=== PATIENT | male | born 1955 | race Hispanic/Latino ===

== ENCOUNTER → 2017-10-06 | Outpatient (CLI) | payer OTHER ==
[~2017-10-06] MED LIST: ALPR0.255 PO; ASPI-1197 PO; ATOR40TA71 PO; BUPR150T8 PO; BUSP15TA3 PO; CETI10TA86 PO; CLOP75TA32 PO; ERGO500014 PO; FLUT15.88 EN; FURO20TA6 PO; METF-444 PO; METO-408 PO; OMEGA KRILL OIL PO; PANT40TA25 PO; PRAZ1CAP5 PO; TRAZ-187 PO; TYL3 PO; VIT B12 PO
== END | disposition home or self-care (01) ==
LOC: SHCH 11:47
PROVIDERS: ATTEND Internal Medicine Cardiovascular Disease
DX: I73.9 Peripheral vascular disease, unspecified (principal); E11.9 Type 2 diabetes mellitus without complications; F41.9 Anxiety disorder, unspecified; F32.9 Major depressive disorder, single episode, unspecified; Z72.89 Other problems related to lifestyle; I10 Essential (primary) hypertension; E78.5 Hyperlipidemia, unspecified; I25.10 Atherosclerotic heart disease of native coronary artery without angina pectoris
CPT/HCPCS: 93925

== ENCOUNTER 2017-11-15 07:23 | Observation (INO) | payer OTHER ==
[2017-11-12 09:58] VITALS: BP 118/81
[2017-11-12 09:59] LABS: BASOPHILS % (AUTO) 1.2 % (0.0-5.0); EOSINOPHILS % (AUTO) 1.6 % (0.0-8.0); HEMATOCRIT 43.3 % (42-54); LYMPHOCYTES % (AUTO) 29.3 % (21.0-51.0); MEAN CORPUSCULAR HEMOGLOBIN 30.3 pg (27.0-33.0); MEAN CORPUSCULAR HGB CONC 35.6 g/dL (32.0-36.0); MEAN CORPUSCULAR VOLUME 85.2 fL (79-99); MONOCYTES % (AUTO) 9.5 % (3.0-13.0); NEUTROPHILS % (AUTO) 58.4 % (40.0-77.0); NUCLEATED RED BLOOD CELLS 0.1 % (0.0-0.19); PLATELET COUNT (AUTO) 168 K/uL (130-400); RED BLOOD CELL COUNT(AUTO) 5.08 MIL/uL (4.50-6.20); RED CELL DISTRIBUTION WIDTH 13.9 % (11.0-15.5); WHITE BLOOD COUNT (AUTO) 5.5 K/uL (4.8-10.8)
[2017-11-12 10:06] LABS: POTASSIUM 3.9 mmol/L (3.5-5.1)
[2017-11-12 10:10] LABS: INR 1.01 (0.85-1.15); PARTIAL THROMBOPLASTIN TIME 27.8 SEC (26.3-35.5); PROTHROMBIN TIME 10.6 SEC (9.6-11.6)
[2017-11-12 10:38] LABS: APPEARANCE,URINE Clear (CLEAR); BILIRUBIN,URINE Negative (NEGATIVE); COLOR,URINE Yellow (YELLOW); GLUCOSE, URINE (UA) Negative (NEGATIVE); KETONES,URINE Negative (NEGATIVE); LEUKOCYTE ESTERASE ,URINE Negative (NEGATIVE); NITRATE,URINE Negative (NEGATIVE); OCCULT BLOOD,URINE Negative (NEGATIVE); PROTEIN,URINE Negative (NEGATIVE); UROBILINOGEN,URINE 0.2 mg/dL (0.2-1.0)
[~2017-11-15] VITALS: Ht 165.1 cm; Wt 74.8 kg
[2017-11-15] VITALS (11 sets, daily range): BP systolic 97–143; BP diastolic 59–83
[~2017-11-15 07:23] MED LIST changes: +CARV25TA PO; -CLOP75TA32 PO; -ERGO500014 PO; -FLUT15.88 EN; +FLUTICASONE PROP NASAL; -FURO20TA6 PO; +GABA-318 PO; -METF-444 PO; +METF-446 PO; -METO-408 PO; +NAPR-1023 PO; -OMEGA KRILL OIL PO; -PANT40TA25 PO; +RANI150T7 PO; +SILD100T PO; -TYL3 PO; -VIT B12 PO
[2017-11-15] MEDS ORDERED: SODIUM CHLORIDE 0.9% 1000ML 1,000 ML IV ONE (07:27)
[2017-11-15] MEDS ORDERED: HEPARIN SODIUM 1000UNIT/ML 10ML VIAL ONE (09:21)
[2017-11-15] MEDS ORDERED: IOHEXOL-350 50ML VIAL IV ONE (09:21)
[2017-11-15] MEDS ORDERED: LIDOCAINE HCL-MPF 2% 5ML VIAL ONE (09:21)
[2017-11-15] MEDS ORDERED: NITROGLYCERIN 5 MG/ML 10 ML VIAL IV ONE (09:21)
[2017-11-15] MEDS ORDERED: IOHEXOL 350 MG/ML 100ML INFUS..BTL IV ONE ×2 (09:21→10:44)
[2017-11-15] MEDS ORDERED: SODIUM BICARB 50MEQ 50ML VIAL ONE (09:21)
[2017-11-15] MEDS ORDERED: MIDAZOLAM HCL 1 MG/ML 2ML VIAL ONE ×2 (10:29→10:50)
[2017-11-15] MEDS ORDERED: MEPERIDINE-PF 25 MG/ML SYG ONE ×2 (10:29→10:50)
[2017-11-15] MEDS ORDERED: ASPIRIN 325MG EC TAB 325 MG TABLET.DR PO ONE (12:01)
[2017-11-15] MEDS ORDERED: CLOPIDOGREL BISULFATE 300 MG TAB ONE (12:01)
[2017-11-15] MEDS: SODIUM CHLORIDE 0.9% 1000ML 1,000 ML IV SCH ×2 (12:09→20:47)
[2017-11-15] MEDS ORDERED: ONDANSETRON HCL 4 MG/2 ML VIAL IVP PRN (12:15)
[2017-11-15] MEDS ORDERED: SILDENAFIL CITRATE PO SCH (12:15)
[2017-11-15] MEDS ORDERED: ACETAMINOPHEN-CODEINE 300/30MG TAB PO PRN ×2 (12:15)
[2017-11-15] MEDS ORDERED: DEXTROSE 50%-WATER 50 ML DISP.SYRIN IV PRN (12:15)
[2017-11-15] MEDS ORDERED: TRAZODONE HCL 100 MG TABLET PO SCH (12:15)
[2017-11-15] MEDS ORDERED: ALPRAZOLAM 0.5 MG TABLET PO SCH (12:15)
[2017-11-15] MEDS: INSULIN HUMULIN R 100 UNIT/ML 3ML SQ SCH ×2 (16:30→21:00)
[2017-11-15] MEDS ORDERED: ALPRAZOLAM 0.5 MG TABLET PO PRN (20:00)
[2017-11-15] MEDS: BUSPIRONE HCL 5 MG TABLET PO SCH (20:28)
[2017-11-15] MEDS: BUPROPION HCL 150 MG TABLET.SA PO SCH (20:29)
[2017-11-15] MEDS: CARVEDILOL 3.125 MG TABLET PO SCH (20:29)
[2017-11-15] MEDS: RANITIDINE HCL 15 MG/1 ML PO SCH (20:46)
[2017-11-15] MEDS: NAPROXEN 500 MG TABLET PO SCH (20:47)
[2017-11-15] MEDS ORDERED: PRAZOSIN 1 MG PO SCH (21:00)
[2017-11-15] MEDS ORDERED: ATORVASTATIN CALCIUM 20 MG TABLET PO SCH (21:00)
[2017-11-16 04:15] LABS: HEMATOCRIT 38.6 % (42-54); MEAN CORPUSCULAR HEMOGLOBIN 30.7 pg (27.0-33.0); MEAN CORPUSCULAR HGB CONC 35.8 g/dL (32.0-36.0); MEAN CORPUSCULAR VOLUME 85.6 fL (79-99); PLATELET COUNT (AUTO) 145 K/uL (130-400); RED BLOOD CELL COUNT(AUTO) 4.51 MIL/uL (4.50-6.20); RED CELL DISTRIBUTION WIDTH 13.7 % (11.0-15.5); WHITE BLOOD COUNT (AUTO) 5.7 K/uL (4.8-10.8)
[2017-11-16 04:32] LABS: POTASSIUM 4.2 mmol/L (3.5-5.1)
[2017-11-16 04:37] VITALS: BP 120/74
[2017-11-16] MEDS: INSULIN HUMULIN R 100 UNIT/ML 3ML SQ SCH (06:42)
[2017-11-16 08:10] VITALS: BP 122/79
[2017-11-16] MEDS ORDERED: GABAPENTIN 300 MG CAPSULE PO SCH (09:00)
[2017-11-16] MEDS ORDERED: CLOPIDOGREL BISULFATE 75 MG TAB PO SCH (09:00)
[2017-11-16] MEDS ORDERED: FLUTICASONE PROPIONATE 50MCG/SPRAY 16 GM BOTTLE EN SCH (09:00)
[2017-11-16] MEDS ORDERED: ASPIRIN 81MG TAB.CHEW PO SCH (09:00)
[2017-11-16] MEDS ORDERED: CETIRIZINE HCL 5 MG TABLET PO SCH (09:00)
[2017-11-16] MEDS: BUSPIRONE HCL 5 MG TABLET PO SCH (10:13)
[2017-11-16] MEDS: RANITIDINE HCL 15 MG/1 ML PO SCH (10:13)
[2017-11-16] MEDS: NAPROXEN 500 MG TABLET PO SCH (10:13)
[2017-11-16] MEDS: BUPROPION HCL 150 MG TABLET.SA PO SCH (10:14)
[2017-11-16] MEDS: CARVEDILOL 3.125 MG TABLET PO SCH (10:14)
[2017-11-16 12:23] VITALS: BP 137/83
== END 2017-11-16 13:35 | disposition home or self-care (01) ==
LOC: DAH 07:23 → SUH 07:23 → 2DH 07:24
PROVIDERS: ADMIT Internal Medicine; ATTEND Internal Medicine
DX: I25.119 Atherosclerotic heart disease of native coronary artery with unspecified angina pectoris (principal); E11.9 Type 2 diabetes mellitus without complications; I10 Essential (primary) hypertension; E78.2 Mixed hyperlipidemia; F41.9 Anxiety disorder, unspecified; Z95.1 Presence of aortocoronary bypass graft; Z82.49 Family history of ischemic heart disease and other diseases of the circulatory system; Z83.3 Family history of diabetes mellitus; Z79.01 Long term (current) use of anticoagulants; Z79.82 Long term (current) use of aspirin
CPT/HCPCS: 36415 ×3; 71045; 80048 ×2; 80061; 81003; 82948 ×3; 85025; 85027; 85347 ×2; 85610; 85730; 92920; 93005; 93459; A4606; C1725 ×2; C1760; C1769 ×5; C1874; C1887 ×2; C1894 ×2; C9600; G0378 ×30; J1644 ×2; J2175 ×2; J2250 ×2; J3490 ×3; J7030; Q9965 ×2; Q9967 ×3; 92921; 99156; 99157

== ENCOUNTER → 2018-08-23 | Outpatient (CLI) | payer OTHER ==
[~2018-08-23] MED LIST changes: -GABA-318 PO; +GABA600T10 PO
== END | disposition home or self-care (01) ==
LOC: RAH 11:04
PROVIDERS: ATTEND Internal Medicine Cardiovascular Disease
DX: M47.816 Spondylosis without myelopathy or radiculopathy, lumbar region (principal); M47.817 Spondylosis without myelopathy or radiculopathy, lumbosacral region; G95.81 Conus medullaris syndrome
CPT/HCPCS: 72148

== ENCOUNTER 2018-10-26 07:08 | Observation (INO) | payer OTHER ==
[2018-10-21 15:30] VITALS: BP 109/72
[2018-10-21 15:35] LABS: BASOPHILS % (AUTO) 1.3 % (0.0-5.0); EOSINOPHILS % (AUTO) 1.6 % (0.0-8.0); HEMATOCRIT 41.2 % (42-54); LYMPHOCYTES % (AUTO) 32.5 % (21.0-51.0); MEAN CORPUSCULAR HEMOGLOBIN 30.4 pg (27.0-33.0); MEAN CORPUSCULAR HGB CONC 35.6 g/dL (32.0-36.0); MEAN CORPUSCULAR VOLUME 85.5 fL (79-99); MONOCYTES % (AUTO) 10.5 % (3.0-13.0); NEUTROPHILS % (AUTO) 54.1 % (40.0-77.0); NUCLEATED RED BLOOD CELLS 0.1 % (0.0-0.19); PLATELET COUNT (AUTO) 187 K/uL (130-400); RED BLOOD CELL COUNT(AUTO) 4.82 MIL/uL (4.50-6.20)
[2018-10-21 15:37] LABS: APPEARANCE,URINE Clear (CLEAR); BILIRUBIN,URINE Negative (NEGATIVE); COLOR,URINE Yellow (YELLOW); GLUCOSE, URINE (UA) Negative (NEGATIVE); KETONES,URINE Negative (NEGATIVE); LEUKOCYTE ESTERASE ,URINE Negative (NEGATIVE); NITRATE,URINE Negative (NEGATIVE); OCCULT BLOOD,URINE Negative (NEGATIVE); PH,URINE 5.5 (5.0-8.0); PROTEIN,URINE Negative (NEGATIVE)
[2018-10-21 15:47] LABS: CREATININE 0.9 mg/dL (0.5-1.5); POTASSIUM 3.7 mmol/L (3.5-5.1)
[2018-10-21 15:50] LABS: INR 1.01 (0.85-1.15); PARTIAL THROMBOPLASTIN TIME 25.9 SEC (26.3-35.5); PROTHROMBIN TIME 10.6 SEC (9.6-11.6)
[2018-10-26] VITALS (17 sets, daily range): BP systolic 106–127; BP diastolic 59–81
[~2018-10-26] VITALS: Ht 165.1 cm; Wt 72.9 kg
[~2018-10-26 07:08] MED LIST changes: -ALPR0.255 PO; -CARV25TA PO; +CARV6.25 PO; +CETI10TA57 PO; -CETI10TA86 PO; +CLOP75TA32 PO; +CYANOCOBALAMIN PO; +FLUT15.845 NS; -FLUTICASONE PROP NASAL; +MONT10TA24 PO; -NAPR-1023 PO
[2018-10-26] MEDS ORDERED: SODIUM CHLORIDE 0.9% 1000ML 1,000 ML IV SCH ×2 (08:00→13:45)
[2018-10-26] MEDS ORDERED: IOHEXOL-350 50ML VIAL IV ONE (12:19)
[2018-10-26] MEDS ORDERED: IOHEXOL 350 MG/ML 100ML INFUS..BTL IV ONE ×2 (12:19→13:15)
[2018-10-26] MEDS ORDERED: NITROGLYCERIN 5 MG/ML 10 ML VIAL IV ONE (12:19)
[2018-10-26] MEDS ORDERED: HEPARIN SODIUM 1000UNIT/ML 10ML VIAL ONE (12:20)
[2018-10-26] MEDS ORDERED: LIDOCAINE HCL 2% 20ML ONE (12:20)
[2018-10-26] MEDS ORDERED: SODIUM BICARB 50MEQ 50ML VIAL ONE (12:21)
[2018-10-26] MEDS ORDERED: MIDAZOLAM HCL 1 MG/ML 2ML VIAL ONE ×2 (12:28→13:12)
[2018-10-26] MEDS ORDERED: MEPERIDINE-PF 25 MG/ML SYG ONE ×2 (12:28→13:12)
[2018-10-26] MEDS ORDERED: NITROGLYCERIN 50 MG/D5% WATER 1 BOT IV PRN (13:45)
[2018-10-26] MEDS ORDERED: SILDENAFIL CITRATE PO SCH (13:45)
[2018-10-26] MEDS ORDERED: ONDANSETRON HCL 4 MG/2 ML VIAL IVP PRN (13:45)
[2018-10-26] MEDS ORDERED: TRAZODONE HCL 100 MG TABLET PO PRN (13:45)
--- NOTE | 2018-10-26 15:00 | NUR ---
REPORT GIVEN TO AHSAN HUSSEIN RN PT. IS STABLE DRESSING IS CLEAN AND DRY. NO HEMATOMA NO BLEEDING AND PAIN
--- NOTE | 2018-10-26 15:09 | NUR ---
DR RODRIGUEZ PAGED WAITING ON RESPONSE
--- NOTE | 2018-10-26 15:14 | NUR ---
PLEASE CALL DR. RODRIGUEZ WHEN PT IS TSF TO [facility]. [facility] [phone]
--- NOTE | 2018-10-26 15:30 | NUR ---
RECEIVED REPORT FROM SHARON FINCH RN AT [id number], PT STABLE NO CONCERNS
--- NOTE | 2018-10-26 20:35 | NUR ---
RECEIVED TO ROOM,ORIENTATED TO CALL [facility] AND BED. BEDREST MAINTAINED AT THIS TIME, PATIENT VERBALIZED UNDERSTANDING. DRESSING TO RIGHT GROIN INTACT. AREA MARKED OF BLEEDING. RT GROIN APPEARS SOFT TO PALPATION. CALL [facility] WITHIN REACH..
[2018-10-26] MEDS ORDERED: ATORVASTATIN CALCIUM 20 MG TABLET PO SCH (21:00)
[2018-10-26] MEDS ORDERED: PRAZOSIN HCL 1 MG PO PRN (21:00)
[2018-10-26] MEDS ORDERED: MONTELUKAST SODIUM 10 MG TAB PO SCH (21:00)
[2018-10-26] MEDS: CARVEDILOL 3.125 MG TABLET PO SCH (21:16)
[2018-10-26] MEDS: RANITIDINE HCL 15 MG/1 ML PO SCH (21:17)
[2018-10-26] MEDS: BUPROPION HCL 150 MG TABLET.SA PO SCH (21:17)
--- NOTE | 2018-10-26 21:30 | NUR ---
gave report to the Mae Barrientos RN , no concerns voiced, advised pt and family of transfer to room no concerns voiced
--- NOTE | 2018-10-26 21:50 | NUR ---
HOSPITALIST NOTIFIED OF PATIENTS ARRIVAL TO [facility]
--- NOTE | 2018-10-26 22:45 | NUR ---
NO FURTHER BLEEDING NOTED TO RIGHT GROIN. SITE CONTINUE TO APPEAR SOFT TO PALPATION. PATIENT DENIES ANY COMPLAINTS OF PAIN OR DISCOMFORT.
[2018-10-26] MEDS ORDERED: ACETAMINOPHEN 325 MG TAB PO PRN (23:15)
[2018-10-26] MEDS ORDERED: NITROGLYCERIN 1GM/1 INCH PACKET TD PRN (23:15)
--- NOTE | 2018-10-27 00:45 | NUR ---
NO FURTHER BLEEDING NOTED OF RIGHT GROIN. SITE CONTINUES TO APPEAR SOFT TO PALPATION. PATIENT DENIES ANY COMPLAINTS OF PAIN OR DISCOMFORT AT THIS TIME. CALL [facility] WITHIN REACH.
[2018-10-27 03:45] VITALS: BP 119/75
[2018-10-27 03:59] LABS: HEMATOCRIT 39.3 % (42-54); MEAN CORPUSCULAR HEMOGLOBIN 30.4 pg (27.0-33.0); MEAN CORPUSCULAR HGB CONC 35.5 g/dL (32.0-36.0); MEAN CORPUSCULAR VOLUME 85.7 fL (79-99); NUCLEATED RED BLOOD CELLS 0.1 % (0.0-0.19); PLATELET COUNT (AUTO) 164 K/uL (130-400); RED BLOOD CELL COUNT(AUTO) 4.58 MIL/uL (4.50-6.20); RED CELL DISTRIBUTION WIDTH 14.2 % (11.0-15.5); WHITE BLOOD COUNT (AUTO) 6.4 K/uL (4.8-10.8)
--- NOTE | 2018-10-27 04:00 | NUR ---
RT GROIN DRESSING REMAINS INTACT. NO FURTHER BLEEDING NOTED. SITE APPEARS SOFT TO PALPATION. DENIES ANY COMPLAINTS OF PAIN OR DISCOMFORT AT PRESENT.
[2018-10-27 04:10] LABS: POTASSIUM 3.5 mmol/L (3.5-5.1)
[2018-10-27 07:18] VITALS: BP 121/77
[2018-10-27] MEDS ORDERED: METFORMIN HCL 500 MG TABLET PO SCH (08:00)
[2018-10-27] MEDS: RANITIDINE HCL 15 MG/1 ML PO SCH (08:04)
[2018-10-27] MEDS: BUPROPION HCL 150 MG TABLET.SA PO SCH (08:05)
[2018-10-27] MEDS: CARVEDILOL 3.125 MG TABLET PO SCH (08:05)
[2018-10-27] MEDS ORDERED: CETIRIZINE HCL 5 MG TABLET PO SCH (09:00)
[2018-10-27] MEDS ORDERED: CYANOCOBALAMIN (VITAMIN B-12) 1,000 MCG TABLET PO SCH (09:00)
[2018-10-27] MEDS ORDERED: BUSPIRONE HCL 5 MG TABLET PO SCH (09:00)
[2018-10-27] MEDS ORDERED: GABAPENTIN 300 MG CAPSULE PO SCH (09:00)
[2018-10-27] MEDS ORDERED: ASPIRIN 81MG TAB.CHEW PO SCH (09:00)
[2018-10-27] MEDS ORDERED: FLUTICASONE PROPIONATE 50MCG/SPRAY 16 GM BOTTLE EN SCH (09:00)
[2018-10-27] MEDS ORDERED: CLOPIDOGREL BISULFATE 75 MG TAB PO SCH (09:00)
[2018-10-27 11:05] VITALS: BP 114/70
--- NOTE | 2018-10-27 14:40 | NUR ---
PATIENT DISCHARGED HOME AT THIS TIME; FOLLOW UP APPTS GIVEN; NO NEW PRESCRIPTIONS GIVEN; PIV AND TELEPACK REMOVED; DC INSTRUCTIONS GIVEN TO PATIENT; COPY OF STENT CARD GIVEN TO PATIENT IN CASE HE LOSES ORIGINAL; ALL QUESTIONS ANSWERED. RT GROIN DRESSING REMOVED; PATIENT SHOWERED EARLIER WITH NO ISSUES; NO FURTHER BLEEDING NOTED. SITE IS SOFT TO PALPATION, AND PATIENT DENIES ANY PAIN OR DISCOMFORT AT THIS TIME; ALL QUESTIONS ANSWERED
== END 2018-10-27 15:44 | disposition home or self-care (01) ==
LOC: DAH 07:08 → DAHIP 07:09 → DAH 07:09 → 2AH 21:39
PROVIDERS: ADMIT Internal Medicine; ATTEND Internal Medicine
DX: I25.119 Atherosclerotic heart disease of native coronary artery with unspecified angina pectoris (principal); I25.810 Atherosclerosis of coronary artery bypass graft(s) without angina pectoris; E11.9 Type 2 diabetes mellitus without complications; E78.5 Hyperlipidemia, unspecified; I25.82 Chronic total occlusion of coronary artery; I10 Essential (primary) hypertension; I87.1 Compression of vein; F41.1 Generalized anxiety disorder; T82.857A Stenosis of other cardiac prosthetic devices, implants and grafts, initial encounter; Y83.2 Surgical operation with anastomosis, bypass or graft as the cause of abnormal reaction of the patient, or of later complication, without mention of misadventure at the time of the procedure; Z82.49 Family history of ischemic heart disease and other diseases of the circulatory system; Z83.3 Family history of diabetes mellitus; Z79.899 Other long term (current) drug therapy
CPT/HCPCS: 36415 ×2; 71045; 80048 ×2; 81003; 82948 ×3; 85025; 85027; 85610; 85730; 93005; 93459; A4215; A4216; A4221; A4222; A4223 ×3; A4606; C1760 ×2; C1769; C1874; C1884; C1887; C1894 ×2; C9604; G0378 ×26; J1644 ×2; J2175 ×2; J2250 ×2; J3490 ×3; J7030; Q9965 ×2; Q9967 ×3; 99156; 99157

== ENCOUNTER 2019-06-30 06:18 | Day surgery (SDC) | payer OTHER ==
[2019-06-30] VITALS (7 sets, daily range): BP systolic 112–125; BP diastolic 69–76
[~2019-06-30] VITALS: Ht 162.6 cm; Wt 75.3 kg
[~2019-06-30 06:18] MED LIST changes: -MONT10TA24 PO; +MONT10TA26 PO
[2019-06-30] MEDS ORDERED: SODIUM CHLORIDE 0.9% 1000ML 1,000 ML IV ONE (06:22)
[2019-06-30] MEDS ORDERED: PROPOFOL 10 MG/ML 20ML VIAL IV ONE (06:34)
[2019-06-30] MEDS ORDERED: GLYCOPYRROLATE 0.2 MG/ML 5 ML VIAL ONE (06:35)
[2019-06-30] MEDS ORDERED: ACET-2247 PO (07:07)
== END 2019-06-30 08:40 | disposition home or self-care (01) ==
LOC: ENDO 06:18 → DAH 06:18 → ENDO 08:40
PROVIDERS: ATTEND Internal Medicine Gastroenterology
DX: Z12.11 Encounter for screening for malignant neoplasm of colon (principal); K22.8 Other specified diseases of esophagus; K29.50 Unspecified chronic gastritis without bleeding; Z86.010 Personal history of colon polyps; I10 Essential (primary) hypertension; E78.5 Hyperlipidemia, unspecified; F41.9 Anxiety disorder, unspecified; F32.9 Major depressive disorder, single episode, unspecified; E11.9 Type 2 diabetes mellitus without complications; I25.810 Atherosclerosis of coronary artery bypass graft(s) without angina pectoris; Z79.899 Other long term (current) drug therapy
CPT/HCPCS: 43239; 82948 ×2; 88305; 88342; A4215; A4221; A4222; A4223; A4606; A4663; G0105; J2704; J3490; J7030; 43200

== ENCOUNTER → 2022-06-18 | Outpatient (CLI) | payer OTHER ==
[~2022-06-18] MED LIST changes: +ACET-2247 PO; +BUPR-113 PO; -BUPR150T8 PO; -CYANOCOBALAMIN PO; +MONT-39 PO; -MONT10TA26 PO
== END | disposition home or self-care (01) ==
LOC: SHCH 08:49
PROVIDERS: ATTEND Internal Medicine Cardiovascular Disease
DX: I35.8 Other nonrheumatic aortic valve disorders (principal); I11.9 Hypertensive heart disease without heart failure; E78.5 Hyperlipidemia, unspecified
CPT/HCPCS: 93306

== ENCOUNTER → 2022-06-23 | Outpatient (CLI) | payer OTHER ==
[~2022-06-23] MED LIST changes: +REGADENOSON 0.4 MG/5 ML PF SYG IVP ONE
== END | disposition home or self-care (01) ==
LOC: SHCH 07:51
PROVIDERS: ATTEND Internal Medicine Cardiovascular Disease
DX: I25.10 Atherosclerotic heart disease of native coronary artery without angina pectoris (principal); R06.00 Dyspnea, unspecified; I10 Essential (primary) hypertension; E11.9 Type 2 diabetes mellitus without complications; E78.5 Hyperlipidemia, unspecified; Z95.5 Presence of coronary angioplasty implant and graft; Z95.1 Presence of aortocoronary bypass graft; Z79.84 Long term (current) use of oral hypoglycemic drugs; Z79.899 Other long term (current) drug therapy
CPT/HCPCS: 78452; 96374; 93017; J2785; A9500 ×2

== ENCOUNTER 2023-06-11 05:52 | Day surgery (SDC) | payer OTHER ==
[2023-06-10 14:44] LABS: BASOPHILS # (AUTO) 0.05 K/uL (0.00-0.20); BASOPHILS % (AUTO) 0.8 % (0.0-5.0); EOSINOPHILS # (AUTO) 0.12 K/uL (0.00-0.70); HEMATOCRIT 45.6 % (42-54); IMMATURE GRANULOCYTE ABSOLUTE 0.01 K/uL (0-1); LYMPHOCYTES % (AUTO) 33.7 % (21.0-51.0); MEAN CORPUSCULAR HEMOGLOBIN 30.8 pg (27.0-33.0); MEAN CORPUSCULAR HGB CONC 34.9 g/dL (32.0-36.0); MEAN CORPUSCULAR VOLUME 88.4 fL (79-99); MONOCYTES # (AUTO) 0.7 K/uL (0.1-1.0); MONOCYTES % (AUTO) 10.8 % (3.0-13.0); NEUTROPHILS # (AUTO) 3.2 K/uL (1.8-7.7); NEUTROPHILS % (AUTO) 52.5 % (40.0-77.0); PLATELET COUNT (AUTO) 166 K/uL (130-400); RED BLOOD CELL COUNT(AUTO) 5.16 MIL/uL (4.50-6.20); RED CELL DISTRIBUTION WIDTH 13.2 % (11.0-15.5)
[2023-06-10 14:54] LABS: CREATININE 0.8 mg/dL (0.5-1.3); POTASSIUM 3.7 mmol/L (3.5-5.1)
[2023-06-10 14:59] LABS: INR <= 0.93 (0.85-1.15); PROTHROMBIN TIME 10.9 SEC (9.6-11.6)
[2023-06-10 15:00] LABS: PARTIAL THROMBOPLASTIN TIME 28.8 SEC (26.3-35.5)
[2023-06-10 15:15] VITALS: BP 123/77; PULSE 51; RESP 18
[2023-06-10 15:23] LABS: APPEARANCE,URINE CLEAR (CLEAR); BILIRUBIN,URINE NEGATIVE (NEGATIVE); COLOR,URINE COLORLESS (YELLOW); GLUCOSE, URINE (UA) >=1000 mg/dL (NEGATIVE); KETONES,URINE NEGATIVE (NEGATIVE); LEUKOCYTE ESTERASE ,URINE NEGATIVE Leu/uL (NEGATIVE); NITRATE,URINE NEGATIVE (NEGATIVE); OCCULT BLOOD,URINE NEGATIVE (NEGATIVE); PROTEIN,URINE NEGATIVE (NEGATIVE); UROBILINOGEN,URINE 0.2 mg/dL (0.2-1.0)
[2023-06-10 15:24] LABS: ADD UA MICROSCOPIC YES
[2023-06-10 15:25] LABS: MUCUS,URINE RARE LPF (None Seen)
[2023-06-10 15:31] LABS: B-TYPE NATRIURETIC PEPTIDE 81 pg/mL (0-100)
[2023-06-11] VITALS (11 sets, daily range): BP systolic 97–122; BP diastolic 63–95; PULSE 44–60; RESP 16
[~2023-06-11] VITALS: Ht 162.6 cm; Wt 68.9 kg
[~2023-06-11 05:52] MED LIST changes: -ACET-2247 PO; +ATOR10 PO; -ATOR40TA71 PO; +BUSP10TA3 PO; -BUSP15TA3 PO; -CETI10TA57 PO; +EMPA25TA PO; -FLUT15.845 NS; +METF-444 PO; -METF-446 PO; +OMEG100033 PO; -RANI150T7 PO; -REGADENOSON 0.4 MG/5 ML PF SYG IVP ONE
[2023-06-11] MEDS: 0.9%NACL 1000ML 1,000 ML IV ONE (06:32)
[2023-06-11] MEDS ORDERED: FENTANYL CITRATE PF 50 MCG/1 ML 2ML VIAL ONE (07:17)
[2023-06-11] MEDS ORDERED: LIDOCAINE HCL 400MG/20ML VIAL ONE (07:17)
[2023-06-11] MEDS ORDERED: HEPARIN 10,000 UNIT/10ML (1,000 UNIT/ML) VIAL ONE (07:17)
[2023-06-11] MEDS ORDERED: MIDAZOLAM HCL 1 MG/ML 2ML VIAL ONE ×2 (07:17→07:42)
[2023-06-11] MEDS ORDERED: IOHEXOL 350 MG/ML 100ML INFUS..BTL IV ONE (07:17)
[2023-06-11] MEDS ORDERED: NICARDIPINE 25MG INJ IV ONE (07:17)
[2023-06-11] MEDS ORDERED: SODIUM BICARB 50MEQ 50ML VIAL 50 ML ONE (07:27)
[2023-06-11] MEDS ORDERED: NITROGLYCERIN 50MG VIAL ONE (07:27)
[2023-06-11] MEDS ORDERED: MEPERIDINE-PF 25 MG/ML SYG ONE ×2 (07:33→07:42)
[2023-06-11] MEDS ORDERED: 0.9%NACL 10ML VIAL IVP SCH (08:30)
== END 2023-06-11 13:00 | disposition home or self-care (01) ==
LOC: DAH 05:52
PROVIDERS: ATTEND Internal Medicine Cardiovascular Disease
DX: I25.119 Atherosclerotic heart disease of native coronary artery with unspecified angina pectoris (principal); I25.82 Chronic total occlusion of coronary artery; I25.719 Atherosclerosis of autologous vein coronary artery bypass graft(s) with unspecified angina pectoris; I11.0 Hypertensive heart disease with heart failure; I50.32 Chronic diastolic (congestive) heart failure; E11.9 Type 2 diabetes mellitus without complications; F41.9 Anxiety disorder, unspecified; Z79.01 Long term (current) use of anticoagulants; Z79.82 Long term (current) use of aspirin; Z82.49 Family history of ischemic heart disease and other diseases of the circulatory system; Z79.84 Long term (current) use of oral hypoglycemic drugs; Z83.3 Family history of diabetes mellitus; Z79.899 Other long term (current) drug therapy; Z95.5 Presence of coronary angioplasty implant and graft
CPT/HCPCS: 80048; 83880; 85025; 85610; 85730; 81001; 36415; 71045; 93005; 93459; 82948 ×2; C1894; C1760 ×2; Q9965; J3490 ×3; J7030; J2250 ×2; J2175 ×2; J1644; Q9967; A4215; A4222; A4221; A4663; A4216; A4606; A4223 ×3; 99156; 99157; J3010